=== PATIENT | female | born 1930 | race Caucasian/White ===

== ENCOUNTER 2017-12-03 10:08 | Emergency (ER) | payer MEDICARE, BC ==
[~2017-12-03] VITALS: Ht 144.8 cm; Wt 41.2 kg
[~2017-12-03 10:08] MED LIST: ACET650T10 PO; CIPR500T4 PO; ESZO3 PO; FERR65TA PO; MONT10TA2 PO; NEXI40CA PO; RANI150 PO; TAB-TAB PO; TYLE3 PO; VITA100017 PO
[2017-12-03 10:11] VITALS: BP 122/58; PULSE 96; RESP 16; TEMP 98.3; O2SAT 97
[2017-12-03] MEDS ORDERED: LUNE1TAB8 PO (10:38)
[2017-12-03] MEDS ORDERED: ZANT150T2 PO (10:38)
[2017-12-03] MEDS ORDERED: SULF500T3 PO (10:38)
[2017-12-03] MEDS ORDERED: NEXI40CA PO (10:38)
[2017-12-03] MEDS ORDERED: TYLETAB34 PO (11:23)
[2017-12-03] MEDS ORDERED: DICL75TA PO (11:23)
[2017-12-03] MEDS ORDERED: KETOROLAC TROMETHAMINE 60 MG/2 ML (IM) VIAL IM ONE (11:30)
--- NOTE | 2017-12-03 11:50 | PD ---
HPI Chief Complaint: Pain: Acute or Chronic Time Seen by Provider: 11:10 Travel History International Travel<30 days: No Contact w/Intl Traveler<30days: No Traveled to known affect area: No History of Present Illness HPI 87-year-old female that presents to the ED for evaluation of right shoulder pain. Patient has had this shoulder pain for some time. Per patient is more severe for the past 3 days. Per patient she has arthritis and she's been told she has tendinitis and bursitis in the past. She had issues with her left shoulder and follow with Dr. Montanez with improvement of symptoms. Per patient is was about 3 years ago. Per patient she's been having problems with the right shoulder and she follow with her yarn spooler who recommended injections in the joint with no improvement. Per patient is was about a month ago. Per patient she is concerned because the symptoms continue. She does tell me that she plays pool and she was doing a play when she fell a sharp pain in her right shoulder. She denies any other injury. No falls or sweats. Per patient she had x-rays done by the yarn spooler. Per patient she is concerned because his symptoms are not improving. She has not let Dr. Sahu know her condition. She denies any urinary or bowel movement issues. No numbness, tilling, weakness. Allergies to morphine and penicillin. PFSH Past Medical History Hx Anticoagulant Therapy: No Arthritis: Yes Gastrointestinal Disorders: Yes (GASTROPARESIS) GERD: Yes Immunizations Current: Yes ?: Not Menopausal: Yes Para: 4 Social History Alcohol Use: Yes (RARE) Tobacco Use: No (NEVER) Substance Use: No Allergies-Medications (Allergen,Severity, Reaction): Coded Allergies: morphine (Verified Allergy, Unknown, 12/03/17) penicillin G (Unverified Allergy, Unknown, 12/03/17) Reported Meds & Prescriptions Reported Meds & Active Scripts Active Tylenol-Codeine #3 (Acetaminophen-Codeine) 300-30 mg Tab 1 Tab PO Q6H PRN Diclofenac Sodium DR (Diclofenac Sodium) 75 Mg Tabdr 75 Mg PO BID PRN Reported Lunesta (Eszopiclone) 1 Mg Tab 3 Mg PO HS PRN Zantac (Ranitidine HCl) 150 Mg Tab 150 Mg PO DAILY Nexium (Esomeprazole DR) 40 Mg Capdr 40 Mg PO DAILY Sulfasalazine 500 Mg Tab 500 Mg PO BID Review of Systems Except as stated in HPI: all other systems reviewed are Neg Physical Exam Narrative GENERAL: SKIN: Warm and dry. HEAD: Atraumatic. Normocephalic. EYES: Pupils equal and round. No scleral icterus. No injection or drainage. ENT: No nasal bleeding or discharge. Mucous membranes pink and moist. Tongue is midline. No uvula deviation. NECK: Trachea midline. No JVD. CARDIOVASCULAR: Regular rate and rhythm. No murmurs, S3, S4. RESPIRATORY: No accessory muscle use. Clear to auscultation. Breath sounds equal bilaterally. GASTROINTESTINAL: Abdomen soft, non-tender, nondistended. Hepatic and splenic margins not palpable. MUSCULOSKELETAL: Extremities without clubbing, cyanosis, or edema. No obvious deformities. Full range of motion of the upper and lower extremities bilaterally. 2+ pulses bilaterally. Patient has full range of motion of the right shoulder but has pain with abduction past 90. Most of the pain appears to be reproducible on the anterior aspect of the shoulder and before meals joint. No obvious deformity noted. 2+ pulses bilaterally. Sensation intact bilaterally. NEUROLOGICAL: Awake and alert. No obvious cranial nerve deficits. Motor grossly within normal limits. Five out of 5 muscle strength in the arms and legs. Normal speech. PSYCHIATRIC: Appropriate mood and affect; insight and judgment normal. Data Data Last Documented VS Vital Signs Date Time Temp Pulse Resp B/P (MAP) Pulse Ox O2 Delivery O2 Flow Rate FiO2 12/03/17 10:11 98.3 96 16 122/58 (79) 97 Orders Orders Ketorolac Inj (Toradol Inj) (12/03/17 11:30) Ed Discharge Order (12/03/17 11:42) [facility] Medical Decision Making Medical Screen Exam Complete: Yes Emergency Medical Condition: Yes Medical Record Reviewed: Yes Differential Diagnosis Bursitis versus tendinitis versus muscle strain versus muscle spasm versus acute on chronic pain versus chronic pain Narrative Course 87-year-old female that presents to the ED for evaluation of shoulder pain. Patient was properly examined and was found to have signs and symptoms consistent appears to be acute on chronic shoulder pain. X-ray was offered but patient declined. Attending at this time is reasonable as patient has had x- rays recently for only show arthritis. She has no history of fall or trauma. Her pain is only reproducible with certain range of motion. I suspect the patient likely has impingement syndrome versus tendinitis versus bursitis. She' s had this in the past she is concerned because she had joint injections recently with no improvement of previously she's had had improvement. She has not follow with orthopedic doctor. She has not seen anybody for an her yarn spooler that she does not like. This time I do recommend close follow- up with her orthopedic surgeon Dr. Gimenez for futher evaluation. She requested possible MRI. At this time I recommend that she follows with PCP or Dr. Montanez before getting an MRI she may not even needed with proper testing done by orthopedics. She did agree with this plan. This time and will give patient a injection of Toradol. She was given a prescription for Tylenol 3 and diclofenac sodium. I strongly recommend that she follows with her orthopedic doctor. 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 I spoke with case management who stated that unfortunately because patient has insurance and primary care has to follow with primary for follow-up. See ED if worsening symptoms. Follow with PCP. Diagnosis Primary Impression: Shoulder impingement syndrome Qualified Codes: M75.41 - Impingement syndrome of right shoulder Referrals: Luca Hoover MD, Jeffrey W MD Rhodes, J. Richard Richard MD Orthopaedic Surgeon Patient Instructions: General Instructions Additional Instructions: Take medications as prescribed. Follow-up with PCP. See ED for any worsening symptoms. Do not drink or drive while taking pain medication. Apply ice or heat as needed for pain Med/Other Pt SpecificInfo: Prescription(s) given Scripts Acetaminophen-Codeine (Tylenol-Codeine #3) 300-30 mg Tab 1 TAB PO Q6H Y for PAIN, #20 TAB 0 Refills Prov: Bereket Phipps MD 12/03/[address] (Diclofenac Sodium DR) 75 Mg Tabdr 75 MG PO BID Y for PAIN SCALE 1 TO 10, #20 TAB 0 Refills Prov: Bereket Phipps MD 12/03/17 Disposition: 01 DISCHARGE HOME Condition: Stable Harjinder Sands Dec 03, 2017 11:50
== END 2017-12-03 11:55 | disposition home or self-care (01) ==
LOC: PHEFT 10:08
DX: M75.41 Impingement syndrome of right shoulder (principal); M19.90 Unspecified osteoarthritis, unspecified site; K21.9 Gastro-esophageal reflux disease without esophagitis
CPT/HCPCS: 96372; 99284; J1885

== ENCOUNTER 2017-12-27 16:27 | Emergency (ER) | payer MEDICARE, BC ==
[~2017-12-27] VITALS: Ht 146.1 cm; Wt 39.7 kg
[~2017-12-27 16:27] MED LIST changes: -ACET650T10 PO; -CIPR500T4 PO; +DICL75TA PO; -ESZO3 PO; -FERR65TA PO; +LUNE1TAB8 PO; -MONT10TA2 PO; -RANI150 PO; +SULF500T3 PO; -TAB-TAB PO; -TYLE3 PO; +TYLETAB34 PO; -VITA100017 PO; +ZANT150T2 PO
[2017-12-27 16:30] VITALS: BP 122/76; PULSE 108; RESP 16; TEMP 99.2; O2SAT 96
[2017-12-27] MEDS ORDERED: SODIUM CHLOR 0.9% 1000 ML INJ 1,000 ML IV SCH (17:13)
[2017-12-27] MEDS ORDERED: SODIUM CHLORIDE 0.9% FLUSH 10 ML FLUSH IV FLUSH PRN (17:15)
--- NOTE | 2017-12-27 17:23 | PD ---
HPI Chief Complaint: GI Complaint Time Seen by Provider: 17:06 Travel History International Travel<30 days: No Contact w/Intl Traveler<30days: No Traveled to known affect area: No History of Present Illness HPI 87-year-old female here for evaluation of persistent diarrhea for the last 4-5 days. Patient reports several episodes of loose/watery/brown bowel movements. She denies melena or hematochezia. She also complains of intermittent diffuse abdominal cramping/bloating. She complains of having abdominal discomfort about 30 minutes after eating which feels like "gas pains." She denies fevers or chills. No vomiting. No history of abdominal surgeries. No recent antibiotic use. No recent travel outside the country. No recent hospitalizations. She is concerned about possibly having C. difficile colitis. PFSH Past Medical History Hx Anticoagulant Therapy: No Arthritis: Yes Diminished Hearing: No Gastrointestinal Disorders: Yes (GASTROPARESIS) GERD: Yes Immunizations Current: Yes Tetanus Vaccination: < 5 Years Influenza Vaccination: Yes ?: Not Menopausal: Yes Para: 4 Social History Alcohol Use: Yes (RARE) Tobacco Use: No (NEVER) Substance Use: No Allergies-Medications (Allergen,Severity, Reaction): Coded Allergies: morphine (Verified Allergy, Unknown, headache, 12/27/17) penicillin G (Unverified Allergy, Unknown, rash and swelling, 12/27/17) Reported Meds & Prescriptions Reported Meds & Active Scripts Active Reported Lunesta (Eszopiclone) 1 Mg Tab 3 Mg PO HS PRN Zantac (Ranitidine HCl) 150 Mg Tab 150 Mg PO DAILY Nexium (Esomeprazole DR) 40 Mg Capdr 40 Mg PO DAILY Review of Systems Except as stated in HPI: all other systems reviewed are Neg Physical Exam Narrative GENERAL: Well-developed, well-nourished, comfortable, no apparent distress. SKIN: Focused skin assessment warm/dry. No rash. No pallor. HEAD: Atraumatic. Normocephalic. EYES: Pupils equal and round. No scleral icterus. No injection or drainage. ENT: Mucous membranes pink and moist. NECK: Trachea midline. No JVD. CARDIOVASCULAR: Regular rate and rhythm. RESPIRATORY: No accessory muscle use. Clear to auscultation. Breath sounds equal bilaterally. GASTROINTESTINAL: Abdomen soft, nondistended. Hyperactive bowel sounds. Mild diffuse tenderness. No peritoneal signs. MUSCULOSKELETAL: No obvious deformities. No clubbing. No cyanosis. No edema. NEUROLOGICAL: Awake and alert. No obvious cranial nerve deficits. Motor grossly within normal limits. Normal speech. PSYCHIATRIC: Appropriate mood and affect; insight and judgment normal. Data Data Last Documented VS Vital Signs Date Time Temp Pulse Resp B/P (MAP) Pulse Ox O2 Delivery O2 Flow Rate FiO2 12/27/17 19:11 84 16 130/75 (93) 97 Room Air 12/27/17 16:30 99.2 Orders Orders Complete Blood Count With Diff (12/27/17 17:13) Comprehensive Metabolic Panel (12/27/17 17:13) Lipase (12/27/17 17:13) Prothrombin Time / Inr (Pt) (12/27/17 17:13) Act Partial Throm Time (Ptt) (12/27/17 17:13) Urinalysis - C+S If Indicated (12/27/17 17:13) Ct Abd/Pel W Iv Contrast(Rout) (12/27/17 17:13) Iv Access Insert/Monitor (12/27/17 17:13) Ecg Monitoring (12/27/17 17:13) Oximetry (12/27/17 17:13) Sodium Chlor 0.9% 1000 Ml Inj (Ns 1000 M (12/27/17 17:13) Sodium Chloride 0.9% Flush (Ns Flush) (12/27/17 17:15) C Diff Toxin Pcr (12/27/17 17:13) Stool Ova And Parasite Screen (12/27/17 17:13) Iohexol 350 Inj (Omnipaque 350 Inj) (12/27/17 18:10) Us Pelvis Comp Pearl Glue Operator/Non-Preg (12/27/17 ) Labs Laboratory Tests Test 12/27/17 17:28 12/27/17 18:45 White Blood Count 18.0 TH/MM3 Red Blood Count 4.81 MIL/MM3 Hemoglobin 13.5 GM/DL Hematocrit 41.3 % Mean Corpuscular Volume 85.9 FL Mean Corpuscular Hemoglobin 28.1 PG Mean Corpuscular Hemoglobin Concent 32.7 % Red Cell Distribution Width 13.1 % Platelet Count 153 TH/MM3 Mean Platelet Volume 9.1 FL Neutrophils (%) (Auto) 88.0 % Lymphocytes (%) (Auto) 4.1 % Monocytes (%) (Auto) 5.4 % Eosinophils (%) (Auto) 0.3 % Basophils (%) (Auto) 2.2 % Neutrophils # (Auto) 15.8 TH/MM3 Lymphocytes # (Auto) 0.7 TH/MM3 Monocytes # (Auto) 1.0 TH/MM3 Eosinophils # (Auto) 0.1 TH/MM3 Basophils # (Auto) 0.4 TH/MM3 CBC Comment DIFF FINAL Differential Comment Prothrombin Time 10.7 SEC Prothromb Time International Ratio 1.1 RATIO Activated Partial Thromboplast Time 24.2 SEC Blood Urea Nitrogen 13 MG/DL Creatinine 0.80 MG/DL Random Glucose 102 MG/DL Total Protein 6.9 GM/DL Albumin 3.4 GM/DL Calcium Level 9.0 MG/DL Alkaline Phosphatase 60 U/L Aspartate Amino Transf (AST/SGOT) 20 U/L Alanine Aminotransferase (ALT/SGPT) 27 U/L Total Bilirubin 0.3 MG/DL Sodium Level 138 MEQ/L Potassium Level 4.1 MEQ/L Chloride Level 103 MEQ/L Carbon Dioxide Level 29.0 MEQ/L Anion Gap 6 MEQ/L Estimat Glomerular Filtration Rate 68 ML/MIN Lipase 81 U/L Urine Collection Type CLEAN CATCH Urine Color YELLOW Urine Turbidity CLEAR Urine pH 6.5 Urine Specific [place] LESS/EQUAL 1.005 Urine Protein NEG mg/dL Urine Glucose (UA) NEG mg/dL Urine Ketones NEG mg/dL Urine Occult Blood TRACE Urine Nitrite NEG Urine Bilirubin NEG Urine Urobilinogen 0.2 MG/DL Urine Leukocyte Esterase NEG Urine RBC 0-3 /hpf Urine WBC 3-5 /hpf Microscopic Urinalysis Comment CULT NOT INDICATED Urine Collection Time 18:45 MDM Medical Decision Making Medical Screen Exam Complete: Yes Emergency Medical Condition: Yes Differential Diagnosis Colitis, diverticulitis, C. difficile colitis, dehydration/metabolic abnormality , appendicitis, UTI, cystitis Narrative Course Initial vital signs show heart rate 108, blood pressure 122/76, pulse ox 90% on room air, temperature 99.2F. CBC: WBC 18, hemoglobin 13.5, hematocrit 41.3, platelets 153, neutrophils 88% CMP is unremarkable. Lipase is 81. UA is not suggestive of UTI. CT abdomen pelvis: CONCLUSION: Small right adnexal mass. No definite acute CT findings in the abdomen or pelvis. Posterior cortex right renal cyst. Parapelvic cysts on the left. No stones. Pelvic ultrasound does not visualize the ovaries. Patient was made aware of all findings. She is resting comfortably. Her abdominal exam is benign. There are no peritoneal signs. She was unable to produce a stool sample here in the emergency department. She would like to be discharged home. She is stable for discharge home with outpatient follow-up with her primary care physician this week. She will try to obtain a stool sample at home and was advised to call her primary care physician when she does so so he can order outpatient labs. She was advised on when to return to the emergency department. She verbalizes understanding and agreement with plan. Diagnosis Primary Impression: Diarrhea Qualified Codes: R19.7 - Diarrhea, unspecified Additional Impressions: Leukocytosis Qualified Codes: D72.829 - Elevated white blood cell count, unspecified Renal cyst Adnexal mass Referrals: Primary Care Physician 2 days Additional Instructions: Follow-up with your primary care physician in the next 2-3 days. Stay hydrated with plenty of fluids. Return to the emergency department for worsening symptoms or any other concerns. Disposition: DISCHARGE HOME Condition: Stable Ino Kaur MD Dec 27, 2017 17:23
[2017-12-27 17:32] LABS: AUTOMATED NEUTROPHIL # 15.8 TH/MM3 (1.8-7.7); BASOPHIL # 0.4 TH/MM3 (0-0.2); BASOPHIL % 2.2 % (0.0-2.0); EOSINOPHIL # 0.1 TH/MM3 (0-0.4); EOSINOPHIL % 0.3 % (0.0-4.0); HEMATOCRIT 41.3 % (35.0-46.0); HEMOGLOBIN 13.5 GM/DL (11.6-15.3); LYMPH % 4.1 % (9.0-44.0); LYMPHOCYTE # 0.7 TH/MM3 (1.0-4.8); MEAN CELL VOLUME 85.9 FL (80.0-100.0); MEAN CORPUSCULAR HEMOGLOBIN 28.1 PG (27.0-34.0); MEAN CORPUSCULAR HGB CONC 32.7 % (32.0-36.0); MEAN PLATELET VOLUME 9.1 FL (7.0-11.0); MONO % 5.4 % (0.0-8.0); PLATELET COUNT 153 TH/MM3 (150-450); RED BLOOD COUNT 4.81 MIL/MM3 (4.00-5.30); RED CELL DISTRIBUTION WIDTH 13.1 % (11.6-17.2)
[2017-12-27 17:40] LABS: CHLORIDE 103 MEQ/L (98-107); SODIUM (NA) 138 MEQ/L (136-145)
[2017-12-27 17:41] VITALS: O2SAT 98
[2017-12-27 17:43] LABS: ALBUMIN 3.4 GM/DL (3.4-5.0); GLUCOSE,RANDOM 102 MG/DL (74-106)
[2017-12-27 17:44] LABS: BLOOD UREA NITROGEN 13 MG/DL (7-18)
[2017-12-27 17:46] LABS: ALT (GPT) 27 U/L (10-53); AST (GOT) 20 U/L (15-37); GLOMERULAR FILTRATION RATE 68 ML/MIN (>89)
[2017-12-27 17:48] LABS: TOTAL BILIRUBIN ADULT 0.3 MG/DL (0.2-1.0); TOTAL PROTEIN 6.9 GM/DL (6.4-8.2)
[2017-12-27 17:49] LABS: ALKALINE PHOSPHATASE 60 U/L (45-117)
[2017-12-27] MEDS ORDERED: IOHEXOL 350 MG/ML 10 ML VIAL (for RAD DIAG) IVCONTRAST ONE (18:10)
[2017-12-27 18:16] LABS: INTERNATIONAL NORMALIZED RATIO 1.1 RATIO; PROTHROMBIN TIME - PATIENT 10.7 SEC (9.8-11.6)
--- NOTE | 2017-12-27 18:21 | RADRPT ---
EXAM DATE/TIME: 12/27/2017 17:59 [facility] COMPARISON: No previous studies available for comparison. INDICATIONS : Intermittent diffuse abdominal cramping and bloating. Diarrhea. IV CONTRAST: 80 cc Omnipaque 350 (iohexol) IV ORAL CONTRAST: No oral contrast ingested. RADIATION DOSE: 4.42 CTDIvol (mGy) MEDICAL HISTORY : Gastroesophageal reflux disease. Gastroparesis. SURGICAL HISTORY : None. ENCOUNTER: Initial ACUITY: 4 - 6 days PAIN SCALE: 3/10 LOCATION: Diffuse abdomen. TECHNIQUE: Volumetric scanning of the abdomen and pelvis was performed. Using automated exposure control and ad justment of the mA and/or kV according to patient size, radiation dose was kept as low as reasonably achievable to obtain optimal diagnostic quality images. DICOM format image data is available electro nically for review and comparison. FINDINGS: LOWER LUNGS: The visualized lower lungs are clear. LIVER: Homogeneous density without lesion. There is no dilation of the biliary tree. No calcified gallston es. SPLEEN: Normal size without lesion. PANCREAS: Within normal limits. KIDNEYS: Posterior cortex right renal cyst. Parapelvic cysts on the left. No stones. ADRENAL GLANDS: Within normal limits. VASCULAR: There is no aortic aneurysm. BOWEL/MESENTERY: Distal colonic diverticulosis. No abnormal dilatation, wall thickening or focal inflammatory change. ABDOMINAL WALL: Within normal limits. RETROPERITONEUM: There is no lymphadenopathy. BLADDER: No wall thickening or mass. REPRODUCTIVE: 2.8 cm low-density right adnexal mass. No evidence of free pelvic fluid. INGUINAL: There is no lymphadenopathy or hernia. MUSCULOSKELETAL: Within normal limits for patient age. CONCLUSION: Small right adnexal mass. No definite acute CT findings in the abdomen or pelvis. Hector Don MD on December 27, 2017 at 18:16 Board Certified Radiologist. This report was verified electronically.
[2017-12-27 18:49] LABS: BILIRUBIN, URINE NEG (NEG); BLOOD, URINE TRACE (NEG); GLUCOSE,URINE NEG (NEG); KETONE, URINE NEG (NEG); NITRITE,URINE NEG (NEG); PH, URINE 6.5 (5.0-8.5); URINE COLOR YELLOW (YELLW/STRAW); URINE LEUKOCYTE ESTERASE NEG (NEG)
[2017-12-27 18:54] LABS: RBC, URINE 0-3 /hpf (0-3)
[2017-12-27 19:11] VITALS: BP 130/75; PULSE 84; RESP 16; O2SAT 97
--- NOTE | 2017-12-27 19:56 | RADRPT ---
EXAM DATE/TIME: 12/27/2017 19:13 [facility] COMPARISON: CT ABDOMEN & PELVIS W CONTRAST, December 27, 2017, 17:59. INDICATIONS : Right adnexal cyst. MEDICAL HISTORY : Arthritis. Gastroparesis. SURGICAL HISTORY : Right knee arthroscopy. Left foot bunionectomy. ENCOUNTER: Initial ACUITY: 1 week PAIN SCORE: 0/10 LOCATION: Bilateral pelvis MEASUREMENTS: UTERUS: 4.8 x 3.3 x 2.5 cm ENDOMETRIAL STRIPE: 1 mm RIGHT OVARY: Not visualized. cm LEFT OVARY: Not visualized cm FINDINGS: UTERUS: The myometrium has homogeneous echotexture without mass. RIGHT OVARY: Nonvisualized LEFT OVARY: Not visualized MISCELLANEOUS: No free fluid. CONCLUSION: Ovaries not visualized. Hector Don MD on December 27, 2017 at 19:52 Board Certified Radiologist. This report was verified electronically.
[2017-12-27 20:37] VITALS: BP 149/84
== END 2017-12-27 20:47 | disposition home or self-care (01) ==
LOC: PHED 16:27
DX: R19.7 Diarrhea, unspecified (principal); D72.829 Elevated white blood cell count, unspecified; N28.1 Cyst of kidney, acquired; K31.84 Gastroparesis; K21.9 Gastro-esophageal reflux disease without esophagitis
CPT/HCPCS: 74177; 76856; 80053; 81001; 83690; 85025; 85610; 85730; 96360; 96361; 99285; J7030; Q9967